=== PATIENT | female | born 1970 | race Caucasian/White ===

== ENCOUNTER → 2016-11-24 | Outpatient (CLI) | payer BC ==
--- NOTE | 2016-11-27 14:19 | POLYSOMNOGRAPH REPORT ---
CLINICAL DATA: A 45-year-old female with obesity, loud snoring, and apneic episodes at night. She is going to have bariatric surgery and had a sleep study performed prior to her surgical procedure. On the evening of 11/24/2016 a home sleep apnea test was performed using a KIWATCH type 3 monitor. The patient does have a BMI of 58.36. RECORDING RESULTS: Total recording time was 10 hours. The patient's estimated sleep time was 8.2 hour. RESPIRATORY DATA: No evidence of clinically significant sleep apnea/hypopnea was seen. The YONNY was 4.1. There was 1 obstructive, 1 mixed, and 5 central apneic episodes. There were 27 hypopneic episodes. The longest respiratory event was 22 seconds. OXIMETRY DATA: Very transient hypoxemia was seen. Oxygen martha was 84%. Mean saturation was 93%. Time below 89% was 1 minute. HEART RATE DATA: Heart rates ranged from 65 to 84 beats per minute. SNORING DATA: Loud snoring was recorded throughout the entire night. IMPRESSION: No evidence of clinically significant sleep apnea/hypopnea with significant nocturnal hypoxemia. RECOMMENDATIONS: The patient should proceed on with her bariatric surgery as planned. There is no need for CPAP based on this study. MTDD
== END | disposition home or self-care (01) ==
LOC: C.NEUR 15:01
PROVIDERS: ATTEND Internal Medicine Pulmonary Disease
DX: I10 Essential (primary) hypertension (principal); E66.01 Morbid (severe) obesity due to excess calories; R06.83 Snoring; R06.81 Apnea, not elsewhere classified

== ENCOUNTER → 2017-04-27 | Day surgery (SDC) | payer BC ==
[2017-04-21 07:39] VITALS: Ht 152.4 cm; Wt 127.3 kg
[~2017-04-27] VITALS: Ht 152.4 cm; Wt 127.3 kg
[~2017-04-27] MED LIST: AMLO-110 PO; BUSP1TAB46 PO; EFF75 PO; IPRA1AER2 INH; LIDOCAINE HCL 2% 2 ML VIAL (20MG/ML) ONE; LISI20TA3 PO; NAPR1TAB9 PO; PROPOFOL IV EMULSION 10 MG/ML 20 ML VIAL IV ONE; RANI150T85 PO; TRAM-10 PO
--- NOTE | 2017-04-27 13:27 | Endo History and Physical ---
History & Physical Date of Service: Apr 27, 2017. Chief Complaint: abd pain Referring Physician: Dr. Mccullough History of Present Illness abd pain; upcoming weight loss surgery Past Surgical History Hx Cardiac Surgery: No Hx Internal Defibrillator: No Hx Pacemaker: No Hx Abdominal Surgery: Yes ( X 2, TUBAL LIGATION, D&C) Hx of Implantable Prosthesis: No Hx Post-Op Nausea and Vomiting: No Hx Cancer Surgery: No Hx Thoracic Surgery: No Hx Orthopedic: No Hx Urinary Tract Surgery: No Family History Colon CA Social History Smoking Status: Never Smoker Hx Substance Use: No Hx Alcohol Use: Yes (OCCASIONALLY) Allergies Coded Allergies: NO KNOWN DRUG ALLERGIES (Verified Allergy, Unknown, ., 04/27/17) Uncoded Allergies: ORANGES (Allergy, Unknown, ITCHING THROAT, 04/21/17) PEANUTS (Allergy, Unknown, TONGUE ITCHING, BLISTERING UNDER EYES, 04/21/17) CAN EAT PEANUT BUTTER Current Medications Reported Home Medications Medications Dose Route/Sig Max Daily Dose Days Date Category Aleve (Naproxen) 220 Mg Tab 220 Mg PO 04/27/17 Reported Norvasc (Amlodipine Besylate) 5 Mg Tab 5 Mg PO QAM 04/21/17 Reported Ultram (Tramadol HCl) 50 Mg Tab 50 Mg PO Q6H PRN 04/21/17 Reported Effexor (Venlafaxine Hcl) 75 Mg Tab 2 Tab PO QAM 04/21/17 Reported Zantac (Ranitidine HCl) 150 Mg Tab 150 Mg PO QAM 04/21/17 Reported Prinivil (Lisinopril) 20 Mg Tab 20 Mg PO QAM 04/21/17 Reported Combivent Respimat (Ipratropium-Albuterol) 1 Aer Aer 1 Puffs INH QID PRN 04/21/17 Reported Buspirone Hcl 7.5 Mg Tab 1 Tab PO QAM 04/21/17 Reported Vital Signs Weight (Kilograms): 127.27 Height (Feet): 5 Height (Inches): 0 Date Time Temp Pulse Resp B/P (MAP) Pulse Ox O2 Delivery O2 Flow Rate FiO2 04/27/17 13:20 36.9 95 18 143/82 (102) 96 Room Air Physical Exam General Appearance: WD/WN, no apparent distress Assessment and Plan EGD today
--- NOTE | 2017-04-27 14:04 | GI REPORT ---
Procedure Date: 04/27/2017 1:48 PM Procedure: Upper GI endoscopy Indications: Epigastric abdominal pain, Preoperative assessment for bariatric surgery to treat morbid obesity; on chronic NSAIDs Medicines: Propofol per Anesthesia Complications: No immediate complications. Estimated blood loss: Minimal. Estimated Blood Loss: Estimated blood loss was minimal. Procedure: Pre-Anesthesia Assessment: - Prior to the procedure, a History and Physical was performed, and patient medications, allergies and sensitivities were reviewed. The patient's tolerance of previous anesthesia was reviewed. - The risks and benefits of the procedure and the sedation options and risks were discussed with the patient. All questions were answered and informed consent was obtained. - Patient identification and proposed procedure were verified prior to the procedure by the physician and the nurse. The procedure was verified in the pre-procedure area in the procedure room. - Mental Status Examination: alert and oriented. Airway Examination: normal oropharyngeal airway and neck mobility. Respiratory Examination: clear to auscultation. CV Examination: normal. Abdominal Examination: bowel sounds present, abdomen soft and non-tender, no masses or organomegaly noted. - ASA Grade Assessment: III - A patient with severe systemic disease. After obtaining informed consent, the endoscope was passed under direct vision. Throughout the procedure, the patient's blood pressure, pulse, and oxygen saturations were monitored continuously. The scope was introduced through the mouth, and advanced to the third part of duodenum. The upper GI endoscopy was accomplished without difficulty. The patient tolerated the procedure well. Findings: The esophagus was normal. Few non-bleeding superficial gastric ulcers were found in the gastric antrum. Biopsies were taken with a cold forceps for Helicobacter pylori testing. Verification of patient identification for the specimen was done by the physician and nurse using the patient's name and date. Estimated blood loss was minimal. Mildly erythematous mucosa without active bleeding and with no stigmata of bleeding was found in the duodenal bulb. The second portion of the duodenum and third portion of the duodenum were normal. Impression: - Normal esophagus. - Several small non-bleeding gastric ulcers. Biopsied. - Erythematous duodenopathy. - Normal second portion of the duodenum and third portion of the duodenum. Recommendation: - Await pathology results. - No ibuprofen, naproxen, or other non-steroidal anti-inflammatory drugs. - Use a proton pump inhibitor PO BID for 6-8 weeks then once a day thereafter. - Discharge patient to home. Surinder Richardson T Suvock, 04/27/2017 2:04:11 PM This report has been signed electronically. Note Initiated On: 04/27/2017 1:48 PM I attest to the content of the Intraoperative Record and orders documented therein, exceptions below
--- NOTE | 2017-04-27 14:13 | Discharge Instructions ---
Endoscopy Patient Instructions Date / Procedure(s) Performed Apr 27, 2017. EGD Allergy Information Coded Allergies: NO KNOWN DRUG ALLERGIES (Verified Allergy, Unknown, ., 04/27/17) Uncoded Allergies: ORANGES (Allergy, Unknown, ITCHING THROAT, 04/21/17) PEANUTS (Allergy, Unknown, TONGUE ITCHING, BLISTERING UNDER EYES, 04/21/17) CAN EAT PEANUT BUTTER Discharge Date / Findings Apr 27, 2017. multiple small stomach ulcers Medication Instructions Restart Stopped Medication(s): OK to resume home medications. Would try to avoid anti-inflammatory medications. Take omeprazole 20 mg twice a day for 6 weeks then oce a day thereafter or resume ranitidine. Further instructions per Dr. Garduno. OK to stop the Zantac (ranitidine) while on the omeprazole. Provider Instructions Activity Restrictions - No exercising or heavy lifting for 24 hours. - Do not drink alcohol the day of the procedure. - Do not drive a car or operate machinery until the day after the procedure. - Do not make any important decisions or sign important papers in 24 hours after the procedure. Following Day: - Return to full activity which may include returning to work/school. Diet Start your diet with liquids and light foods (jello, soup, juice, toast). Then eat your usual diet if not nauseated. Treatment For Common After Affects For mild abdominal pain, bloating, or excessive gas: - Rest - Eat lightly - Lie on right side Follow-Up Information Follow-up with Dr. Mccullough as scheduled Anesthesia Information What You Should Know You have had a procedure that required some medicine to reduce anxiety and discomfort. This treatment is called moderate sedation. After receiving the treatment, you may be sleepy, but you will be able to breathe on your own. The effects of the treatment may last for several hours. Follow these instructions along with Activity/Diet recommendations noted above: * Do NOT do anything where dizziness or clumsiness would be dangerous. * Rest quietly at home today, then you can be up and about tomorrow. * Have a responsible person stay with you the rest of today. * You may have had an I.V. today. If so, you may take the dressing off later today. Recommendations Call your doctor if: * Trouble breathing * Continuous vomiting for more than 24 hours * Temperature above 101 degrees * Severe abdominal pain or bloating * Pain not relieved by pain medicine ordered * There is increased drainage or redness from any incision * A large amount of rectal bleeding greater than 2-3 tablespoons. (If you had a polyp/s removed or have hemorrhoids, a small amount of blood - from the rectum is to be expected.) * You have any unanswered questions or concerns. IN THE EVENT OF A SERIOUS EMERGENCY, GO TO THE NEAREST EMERGENCY ROOM Your discharge instructions were prepared by provider Osiris Arora. Patient Instructions Signature Page Chantelle Cameron Patient (or Guardian) Signature/Date: I have read and understand the instructions given to me by my caregivers. Caregiver/RN/Doctor Signature/Date: The above-named patient and/or guardian has received patient instructions on this date. + Original Patient Signature Page (only) stays with chart. Please make copy for patient.
[2017-04-27 14:35] VITALS: BP 141/90; PULSE 84; O2SAT 96
--- NOTE | 2017-04-27 14:58 | Anesthesiology Progress Note ---
Anesthesia Post Op Note Date & Time Apr 27, 2017 at 14:58 Vital Signs Pain Intensity: 0 Vital Signs Past 12 Hours Date Time Temp Pulse Resp B/P (MAP) Pulse Ox O2 Delivery O2 Flow Rate FiO2 04/27/17 14:35 84 18 141/90 (107) 96 Room Air 04/27/17 14:20 98 18 134/90 (105) 98 Room Air 04/27/17 14:05 92 18 125/80 (95) 93 Room Air 04/27/17 13:20 36.9 95 18 143/82 (102) 96 Room Air Notes Mental Status: alert / awake / arousable, participated in evaluation Pt Amnestic to Procedure: Yes Nausea / Vomiting: adequately controlled Pain: adequately controlled Airway Patency, RR, SpO2: stable & adequate BP & HR: stable & adequate Hydration State: stable & adequate Anesthetic Complications: no major complications apparent
== END | disposition home or self-care (01) ==
LOC: C.GI 12:43
PROVIDERS: ATTEND Internal Medicine
DX: R10.13 Epigastric pain (principal); K29.50 Unspecified chronic gastritis without bleeding; K25.9 Gastric ulcer, unspecified as acute or chronic, without hemorrhage or perforation; E66.01 Morbid (severe) obesity due to excess calories; Z79.1 Long term (current) use of non-steroidal anti-inflammatories (NSAID)